=== PATIENT | female | born 1985 | race Caucasian/White ===

== ENCOUNTER 2018-08-18 22:06 | Emergency (ER) | payer MEDICARE, MEDICAID ==
[~2018-08-18] VITALS: Ht 162.6 cm; Wt 54.0 kg
[2018-08-18] MEDS ORDERED: SODIUM CHLORIDE 0.9% 1,000 ML IV ONE (23:07)
[2018-08-18] MEDS ORDERED: MORPHINE SULFATE 4 MG/ML CPJ (NOT FOR IM USE) IV STA (23:07)
[2018-08-18] MEDS ORDERED: ONDANSETRON HCL 4MG/2ML INJ IV STA (23:07)
[2018-08-19 00:18] LABS: HEMATOCRIT. 43.1 % (36.0-48.0); HEMOGLOBIN. 14.6 g/dL (12.0-16.0); MEAN CORPUSCULAR HEMOGLOBIN 30.3 pg (28.0-32.0); MEAN CORPUSCULAR VOLUME 89.7 fL (81.0-99.0); PLATELET 215 x1000/uL (130-400); RED BLOOD CELL COUNT 4.81 mill/uL (4.2-5.4); RED CELL DISTRIBUTION WIDTH 12.5 % (11.6-14.6)
[2018-08-19 00:24] LABS: CHLORIDE 105 mEq/L (98-107)
[2018-08-19 00:51] LABS: PLATELET ESTIMATE SLIGHTLY DECREASED
[2018-08-19] MEDS ORDERED: DEXAMETHASONE 10 MG/ML VIAL IV NR (01:00)
[2018-08-19] MEDS ORDERED: PHENYTOIN SODIUM 500 MG in SODIUM CHLORIDE 0.9% 50 ML IV NR (01:00)
[2018-08-19] MEDS ORDERED: MANNITOL 20% 250 ML IV NR (01:00)
[2018-08-19] MEDS ORDERED: PHENYTOIN SODIUM 100MG/2ML VIAL IV ONE (01:18)
[2018-08-19 09:42] VITALS: BP 100/60
== END 2018-08-19 10:04 | disposition short-term general hospital (02) ==
LOC: ER 22:06
DX: D49.6 Neoplasm of unspecified behavior of brain (principal); G93.6 Cerebral edema
CPT/HCPCS: 36415; 70450; 80053; 81025; 85025; 93005; 96361; 96365; 96366; 96367; 96375; 99285; J1100; J1165; J2270; J2405; J7030; J3490